=== PATIENT | male | born 1975 | race Caucasian/White ===

== ENCOUNTER 2018-01-22 22:58 | Emergency (ER) | payer OTHER ==
[~2018-01-22] VITALS: Ht 188 cm; Wt 108.9 kg
[2018-01-22] MEDS ORDERED: CELEXA10 MG PO (23:06)
[2018-01-23 00:55] LABS: ABSOLUTE LYMPHOCYTES 2.7 thou/uL (0.8-5.3); ABSOLUTE MONOCYTES 0.7 thou/uL (0.0-1.2); ABSOLUTE NEUTROPHILS 7.6 thou/uL (1.6-8.1); BASOPHILS 0.3 %; EOSINOPHILS 0.2 %; HEMATOCRIT 44.2 % (42.0-52.0); HEMOGLOBIN 14.9 gm/dL (14.0-18.0); LYMPHOCYTES 24.7 %; MCH 31.3 pg (26.0-34.0); MCHC 33.8 g/dL (28.0-37.0); MCV 92.7 fL (80.0-100.0); MPV 7.8 fl. (7.2-11.1); NUCLEATED RBCS 0 /100WBC; PLATELET COUNT* 217 thou/uL (150-400); POLYS 68.8 %; RBC 4.76 mil/uL (4.50-6.00); RDW-CV 13.7 % (10.5-14.5); WBC 11.1 thou/uL (4.0-11.0)
[2018-01-23 01:14] LABS: CALCIUM 8.1 mg/dL (8.5-10.1); CREATININE 0.9 mg/dL (0.6-1.3); POTASSIUM 3.2 mmol/L (3.5-5.1)
[2018-01-23 01:19] LABS: ALBUMIN 3.8 g/dL (3.4-5.0); TOTAL BILIRUBIN 0.3 mg/dL (<0.1-1.0); TOTAL PROTEIN 7.7 g/dL (6.4-8.2)
[2018-01-23] MEDS ORDERED: FLEXERIL PO (02:16)
[2018-01-23] MEDS ORDERED: PERCOCET 7.5-31 EACH PO (02:16)
[2018-01-23 02:33] VITALS: BP 122/70
== END 2018-01-23 02:35 | disposition home or self-care (01) ==
LOC: M.ERS 22:58
PROVIDERS: Emergency Medicine
DX: S22.089A Unspecified fracture of T11-T12 vertebra, initial encounter for closed fracture (principal); V49.9XXA Car occupant (driver) (passenger) injured in unspecified traffic accident, initial encounter; Y93.89 Activity, other specified; Y92.89 Other specified places as the place of occurrence of the external cause; Y99.8 Other external cause status

== ENCOUNTER → 2018-01-24 | Outpatient (CLI) | payer OTHER ==
[~2018-01-24] MED LIST: CELEXA10 MG PO; FLEXERIL PO; PERCOCET 7.5-31 EACH PO
== END ==
LOC: M.RAD 15:05
DX: R06.2 Wheezing (principal); Z72.89 Other problems related to lifestyle